=== PATIENT | female | born 1955 | race Caucasian/White ===

== ENCOUNTER → 2022-10-01 11:36 | Day surgery (SDC) | payer MEDICARE, SELFPAY ==
[2022-10-01 11:44] VITALS: BMI 24.5
[2022-10-01 11:45] VITALS: BP 147/78; PULSE 69; RESP 16; TEMP 36.6; O2SAT 99
[2022-10-01 13:25] VITALS: BP 178/85; PULSE 64; RESP 16; O2SAT 96
== END ==
PROVIDERS: PCP Internal Medicine; Visit Provider Ophthalmology
PROC: (CPT 67840; principal; 2022-10-01 12:30)
DX: D23.111 Other benign neoplasm of skin of right upper eyelid, including canthus (principal)
CPT/HCPCS: 67840; 88304; 88305